=== PATIENT | female | born 1940 | race Caucasian/White ===

== ENCOUNTER 2019-10-25 09:43 | Inpatient (IN) | payer MEDICARE ==
[~2019-10-25] VITALS: Ht 152.4 cm; Wt 71.5 kg
[2019-10-25 10:28] LABS: BASOPHILS # (AUTO) 0.04 x10^3/uL (0-0.1); BASOPHILS % (AUTO) 0 % (0-1); EOSINOPHILS # (AUTO) 0.31 x10^3/uL (0-0.4); EOSINOPHILS % (AUTO) 2 % (1-7); LYMPHOCYTES % (AUTO) 17 % (22-44); MD NO; MEAN CORPUSCULAR HEMOGLOBIN 30.2 pg (27.0-34.8); MEAN CORPUSCULAR HGB CONC 32.7 g/dL (32.4-35.8); MEAN CORPUSCULAR VOLUME 92.4 fL (80-100); MEAN PLATELET VOLUME 9.2 fL (7.4-10.4); MONOCYTES # (AUTO) 1.01 x10^3/uL (0.2-0.8); MONOCYTES % (AUTO) 6 % (2-9); NEUTROPHILS # (AUTO) 13.58 x10^3/uL (1.8-6.8); NEUTROPHILS % (AUTO) 76 % (42-75); PLATELET COUNT 292 x10^3/uL (130-400); RED BLOOD COUNT 4.37 x10^6/uL (3.82-5.3); RED CELL DISTRIBUTION WIDTH 14.1 % (9.6-15.2)
[2019-10-25 10:39] LABS: ALBUMIN 3.9 g/dL (3.4-5.0); ANION GAP 7 mmol/L (5-15); CALCIUM 9.6 mg/dL (8.5-10.1); CHLORIDE 109 mmol/L (98-107); CREATININE 0.84 mg/dL (0.55-1.02)
[2019-10-25 10:42] LABS: TROPONIN I < 0.015 ng/mL (0.000-0.045)
--- NOTE | 2019-10-25 10:53 | NUR ---
pt presents to ED with c/o cough, sob with exertion, and rt lateral chest pain worse with coughing and deep breathing x 1 week. pt attached to all monitors, mask in place. pt a&o, resps even and unlabored, able to speak in full sentences without difficulty. at bedside. awaiting lab results and dispo at this time.
--- NOTE | 2019-10-25 11:10 | NUR ---
MD Brandon at bedside. notified pt has occaisional bigeminy and frequent pvc's. pt a&o, resps even and unlabored, vss. report given to EJ Cuevas at bedside. Addendum: 10/25/19 at 1116 by DAMORALES MD Brandon at bedside. notified pt has occaisional bigeminy and frequent pvc's. aware of wbc. pt a&o, resps even and unlabored, vss. report given to EJ Cuevas at bedside.
--- NOTE | 2019-10-25 11:12 | NUR ---
REPORT RECEIVED FROM KOREY PAGAN.
[2019-10-25] MEDS ORDERED: CEFTRIAXONE PMX 1GM/50ML 50 ML ONE (11:16)
[2019-10-25] MEDS ORDERED: CEFTRIAXONE PMX 1GM/50ML 50 ML IVPB ONE (11:30)
--- NOTE | 2019-10-25 11:38 | NUR ---
piv est on l upper arm with no complications. pt tolerated well.
--- NOTE | 2019-10-25 11:58 | NUR ---
abx infusing at this time after blood culture x 2 times. pt tolerated well.
--- NOTE | 2019-10-25 12:13 | NUR ---
pt amb to br and back to room with steady gait.
--- NOTE | 2019-10-25 13:00 | NUR ---
ua collected and sent at this time.
[2019-10-25 13:19] LABS: MICROSCOPIC NOT IND
--- NOTE | 2019-10-25 13:30 | NUR ---
REPORT GIVEN TO BRITTNY PAGAN. ALL QUESTIONS ANSWERED.
[2019-10-25 13:38] LABS: CULTURE INDICATED? NO
[2019-10-25 14:17] VITALS: BP 130/78
[2019-10-25 14:41] VITALS: BP 131/82
[2019-10-25] MEDS ORDERED: ONDANSETRON ODT 4 MG PO PRN (16:00)
[2019-10-25] MEDS ORDERED: ACETAMINOPHEN 325 MG TABLET PO PRN (16:00)
[2019-10-25] MEDS ORDERED: METHOCARBAMOL 500 MG TABLET PO PRN (16:00)
[2019-10-25] MEDS ORDERED: hydrALAzine 20 MG/ML, 1ML IVPush PRN (16:00)
[2019-10-25] MEDS ORDERED: POLYETHYLENE GLYCOL 17 GM PACKET PO PRN (16:00)
[2019-10-25] MEDS ORDERED: HYDROmorphone 2 MG/ML, 1ML IVPush PRN (16:00)
[2019-10-25] MEDS ORDERED: ONDANSETRON 2MG/ML, 2ML IVPush PRN (16:00)
[2019-10-25] MEDS ORDERED: AZITHROMYCIN 500 MG in SODIUM CHLORIDE 0.9% 250 ML IV ONE (16:00)
[2019-10-25] MEDS ORDERED: LABETALOL 5MG/ML, 20ML IVPush PRN (16:00)
[2019-10-25] MEDS ORDERED: ALBUTEROL/IPRATROPIUM 2.5MG/0.5MG, 3 ML HHN SCH (17:00)
[2019-10-25] MEDS: ALBUTEROL/IPRATROPIUM 2.5MG/0.5MG, 3 ML HHN SCH ×3 (17:15→21:55)
[2019-10-25] MEDS: POTASSIUM CHLORIDE 20 MEQ in LACTATED RINGERS 1,000 ML IV SCH (17:54)
[2019-10-25] MEDS ORDERED: TIOT4MIS5 INH (18:33)
[2019-10-25] MEDS ORDERED: OMEP40CA42 PO (18:33)
[2019-10-25] MEDS ORDERED: CITA40TA5 PO (18:33)
[2019-10-25] MEDS ORDERED: MONT10TA11 PO (18:33)
[2019-10-25] MEDS ORDERED: METO25TA4 PO (18:33)
[2019-10-25] MEDS ORDERED: ASPI-515 PO (18:33)
[2019-10-25] MEDS ORDERED: ATOR40TA78 PO (18:33)
[2019-10-25] MEDS ORDERED: ALBU90AE NEB (18:33)
[2019-10-25] MEDS ORDERED: ALPR1TAB2 PO (18:33)
[2019-10-25] MEDS ORDERED: TRAM50TA2 PO (18:33)
[2019-10-25] MEDS ORDERED: LOSA25TA12 PO (18:33)
[2019-10-25] MEDS ORDERED: BUDE10.2 INH (18:33)
[2019-10-25] MEDS ORDERED: ARIP2TAB17 PO (18:34)
[2019-10-25] MEDS ORDERED: MELO15TA24 PO (18:34)
[2019-10-25] MEDS: KETOROLAC 30 MG/1 ML IV PRN (18:44)
[2019-10-25 20:33] VITALS: BP 105/70
[2019-10-25] MEDS: BUDESONIDE 0.5 MG/2 ML INHA INH SCH (21:54)
[2019-10-25 23:41] LABS: RAPID INFLUENZA A Negative (Negative); RAPID INFLUENZA B Negative (Negative)
[2019-10-26] MEDS: CEFTRIAXONE PMX 1GM/50ML 50 ML IV SCH ×3 (01:00→23:50)
[2019-10-26] MEDS: TEMAZEPAM 15 MG CAPSULE PO PRN ×2 (01:00→20:50)
[2019-10-26 01:22] VITALS: BP 113/70
[2019-10-26] MEDS: ALBUTEROL/IPRATROPIUM 2.5MG/0.5MG, 3 ML HHN SCH ×5 (02:30→19:38)
[2019-10-26] MEDS: POTASSIUM CHLORIDE 20 MEQ in LACTATED RINGERS 1,000 ML IV SCH (03:32)
[2019-10-26 06:15] LABS: BASOPHILS # (AUTO) 0.05 x10^3/uL (0-0.1); BASOPHILS % (AUTO) 0 % (0-1); EOSINOPHILS # (AUTO) 0.31 x10^3/uL (0-0.4); EOSINOPHILS % (AUTO) 3 % (1-7); LYMPHOCYTES # (AUTO) 2.47 x10^3/uL (1-3.4); LYMPHOCYTES % (AUTO) 22 % (22-44); MD NO; MEAN CORPUSCULAR HEMOGLOBIN 30.1 pg (27.0-34.8); MEAN CORPUSCULAR HGB CONC 32.3 g/dL (32.4-35.8); MEAN CORPUSCULAR VOLUME 93.2 fL (80-100); MEAN PLATELET VOLUME 8.9 fL (7.4-10.4); MONOCYTES # (AUTO) 0.94 x10^3/uL (0.2-0.8); MONOCYTES % (AUTO) 8 % (2-9); NEUTROPHILS # (AUTO) 7.61 x10^3/uL (1.8-6.8); NEUTROPHILS % (AUTO) 67 % (42-75); PLATELET COUNT 232 x10^3/uL (130-400); RED BLOOD COUNT 3.87 x10^6/uL (3.82-5.3); RED CELL DISTRIBUTION WIDTH 13.9 % (9.6-15.2)
[2019-10-26 06:18] LABS: ALBUMIN 3.3 g/dL (3.4-5.0); ANION GAP 8 mmol/L (5-15); CALCIUM 8.6 mg/dL (8.5-10.1); CHLORIDE 108 mmol/L (98-107)
[2019-10-26 06:31] LABS: ALANINE AMINOTRANSFERASE 16 U/L (12-78); ALKALINE PHOSPHATASE 76 U/L (45-117); BILIRUBIN,TOTAL 0.4 mg/dL (0.2-1.0); CREATININE 0.93 mg/dL (0.55-1.02); TOTAL PROTEIN 6.5 g/dL (6.4-8.2)
[2019-10-26] MEDS: BUDESONIDE 0.5 MG/2 ML INHA INH SCH ×2 (07:03→19:38)
[2019-10-26 08:54] VITALS: BP 115/70
[2019-10-26] MEDS: GUAIFENESIN/DM 200-20MG, 10ML UDC PO PRN (11:05)
[2019-10-26] MEDS: LOSARTAN 25MG TABLET PO SCH (11:05)
[2019-10-26] MEDS: OMEPRAZOLE 20 MG CAPSULE.DR PO SCH (11:05)
[2019-10-26] MEDS: MELOXICAM 15 MG TABLET PO PRN (11:06)
[2019-10-26] MEDS: MONTELUKAST 10 MG TABLET PO SCH (11:06)
[2019-10-26] MEDS: CITALOPRAM 20 MG TABLET PO SCH ×2 (11:06→20:50)
[2019-10-26] MEDS: METOPROLOL TARTRATE 25 MG TAB PO SCH (11:06)
[2019-10-26] MEDS: ASPIRIN 81 MG TABLET EC PO SCH (11:06)
[2019-10-26] MEDS: AZITHROMYCIN 500 MG in SODIUM CHLORIDE 0.9% 250 ML IV SCH (11:08)
[2019-10-26] MEDS: ARIPIPRAZOLE 2 MG TABLET PO SCH (12:19)
[2019-10-26 13:02] VITALS: BP 144/80
[2019-10-26] MEDS: ATORVASTATIN 40 MG TABLET PO SCH (20:51)
[2019-10-26 21:11] VITALS: BP 135/72
[2019-10-26] MEDS: KETOROLAC 30 MG/1 ML IV PRN (21:20)
[2019-10-27 01:51] VITALS: BP 134/82
[2019-10-27 07:11] VITALS: BP 138/78
[2019-10-27] MEDS: ALBUTEROL/IPRATROPIUM 2.5MG/0.5MG, 3 ML HHN SCH ×4 (07:31→19:40)
[2019-10-27] MEDS: BUDESONIDE 0.5 MG/2 ML INHA INH SCH ×2 (07:31→19:40)
[2019-10-27] MEDS: OMEPRAZOLE 20 MG CAPSULE.DR PO SCH (09:13)
[2019-10-27] MEDS: CITALOPRAM 20 MG TABLET PO SCH ×2 (09:14→20:02)
[2019-10-27] MEDS: MONTELUKAST 10 MG TABLET PO SCH (09:14)
[2019-10-27] MEDS: ASPIRIN 81 MG TABLET EC PO SCH (09:14)
[2019-10-27] MEDS: METOPROLOL TARTRATE 25 MG TAB PO SCH (09:14)
[2019-10-27] MEDS: ARIPIPRAZOLE 2 MG TABLET PO SCH (09:14)
[2019-10-27] MEDS: MELOXICAM 15 MG TABLET PO PRN (09:15)
[2019-10-27] MEDS: LOSARTAN 25MG TABLET PO SCH (09:16)
[2019-10-27] MEDS: GUAIFENESIN/DM 200-20MG, 10ML UDC PO PRN ×2 (09:25→20:06)
[2019-10-27] MEDS: AZITHROMYCIN 500 MG in SODIUM CHLORIDE 0.9% 250 ML IV SCH (11:03)
[2019-10-27] MEDS: CEFTRIAXONE PMX 1GM/50ML 50 ML IV SCH ×2 (12:10→23:59)
[2019-10-27 13:27] VITALS: BP 120/71
[2019-10-27 19:30] VITALS: BP 134/76
[2019-10-27] MEDS: ATORVASTATIN 40 MG TABLET PO SCH (20:02)
[2019-10-27] MEDS: TEMAZEPAM 15 MG CAPSULE PO PRN (20:02)
[2019-10-27] MEDS: HEPARIN 5,000 UNITS/ML, 1ML SQ SCH (21:00)
[2019-10-28 01:33] VITALS: BP 138/74
[2019-10-28] MEDS: ALBUTEROL/IPRATROPIUM 2.5MG/0.5MG, 3 ML HHN SCH (06:00)
[2019-10-28] MEDS: BUDESONIDE 0.5 MG/2 ML INHA INH SCH (07:07)
[2019-10-28 07:23] VITALS: BP 156/82
[2019-10-28] MEDS: HEPARIN 5,000 UNITS/ML, 1ML SQ SCH (09:27)
[2019-10-28] MEDS: ASPIRIN 81 MG TABLET EC PO SCH (09:28)
[2019-10-28] MEDS: MONTELUKAST 10 MG TABLET PO SCH (09:28)
[2019-10-28] MEDS: CITALOPRAM 20 MG TABLET PO SCH (09:28)
[2019-10-28] MEDS: METOPROLOL TARTRATE 25 MG TAB PO SCH (09:28)
[2019-10-28] MEDS: ARIPIPRAZOLE 2 MG TABLET PO SCH (09:29)
[2019-10-28] MEDS: OMEPRAZOLE 20 MG CAPSULE.DR PO SCH (09:29)
[2019-10-28] MEDS: LOSARTAN 25MG TABLET PO SCH (09:29)
[2019-10-28] MEDS: AZITHROMYCIN 500 MG in SODIUM CHLORIDE 0.9% 250 ML IV SCH (11:08)
[2019-10-28] MEDS ORDERED: AZIT250T PO (13:20)
[2019-10-28] MEDS ORDERED: CEFD300C37 PO (13:20)
[2019-10-28 13:25] VITALS: BP 149/69
[2019-10-28] MEDS: CEFTRIAXONE PMX 1GM/50ML 50 ML IV SCH (14:04)
[2019-10-28] MEDS ORDERED: ALBUTEROL/IPRATROPIUM 2.5MG/0.5MG, 3 ML HHN SCH (21:00)
== END 2019-10-28 16:55 | disposition home or self-care (01) | DRG 190 ==
LOC: ED 12:33 → EDIP 12:38 → ED 12:51 → 4WST 14:10 → DCLOUNGE 10-28 16:41
PROVIDERS: ADMIT Hospitalist; ATTEND Family Medicine
DX: J44.0 Chronic obstructive pulmonary disease with (acute) lower respiratory infection (principal); J18.9 Pneumonia, unspecified organism; E86.0 Dehydration; I10 Essential (primary) hypertension; F32.9 Major depressive disorder, single episode, unspecified; M19.90 Unspecified osteoarthritis, unspecified site; R09.02 Hypoxemia; Z85.118 Personal history of other malignant neoplasm of bronchus and lung; Z87.891 Personal history of nicotine dependence; Z90.49 Acquired absence of other specified parts of digestive tract; Z98.51 Tubal ligation status; Z79.899 Other long term (current) drug therapy
CPT/HCPCS: 36415; 71045; 80048; 80053; 81003; 82040; 83605; 83735; 84100; 84145; 84443; 84484; 85025; 87040; 87400; 93005; 94640; 96365; 96366; G0378; J0456; J0696; J1885; J3480; J7620; J7626; J7050; J7120